=== PATIENT | male | born 1990 | race African-American/Black ===

== ENCOUNTER 2019-07-22 09:57 | Emergency (ER) | payer OTHER ==
[~2019-07-22] VITALS: Ht 180.3 cm; Wt 57.2 kg
--- NOTE | 2019-07-22 10:11 | NUR ---
ED Nurse Note: Patient walked in due to flu like symptoms. Pt c/o bodyaches. As per patient, he feelsnauseated and has been vomiting since yesterday. No episodes of vomiting at this time. No SOB. Breathing even and unlabored. VSS.
[2019-07-22 10:12] VITALS: BP 150/73
[2019-07-22] MEDS ORDERED: Acetaminophen 500mg (ES) tab ORAL ONE (11:15)
--- NOTE | 2019-07-22 11:18 | Emergency Room Report ---
History of Present Illness General Chief Complaint: Flu Like Symptoms Source: Patient Present Illness HPI Disclaimer: Please note that this report is being documented using [employer] technology. This can lead to erroneous entry secondary to incorrect interpretation by the dictating instrument. HPI: 29-year-old otherwise healthy male presents for evaluation of multiple symptoms. He developed nasal congestion, sore throat headache and myalgias a proximal he 1 week ago. Symptoms have been controlled with [id number] nasal spray, decongestants, NyQuil and NSAIDs. 2 days ago he developed some abdominal cramping with intermittent episodes of nonbloody nonbilious vomiting and profusely watery diarrhea. He reports feeling weak and overall worn out/ unwell. Denies fevers, chills, cough. Believes he has the flu. Did not have a flu shot this year. No known sick contacts. PMH: Denies PSH: Denies Allergies: Sulfa medications Social Hx: Denies drug or alcohol abuse Allergies: Coded Allergies: SULFA (SULFONAMIDE ANTIBIOTICS) (Verified Allergy, Unknown, 07/22/19) Nursing Documentation-PMH Past Medical History: No Stated History Review of Systems All Other Systems: negative except mentioned in HPI Physical Exam Vital Signs Date Time Temp Pulse Resp B/P (MAP) Pulse Ox O2 Delivery O2 Flow Rate FiO2 07/22/19 10:07 98.4 76 17 150/73 (98) 98 Room Air General: Awake and alert, no acute distress HEENT: NC/AT. EOMI. pharynx is erythematous but not edematous and no exudate Neck: Supple, trachea midline, mild lymphadenitis Cardiovascular: RRR. S1 and S2 normal. No murmur appreciated Resp: Normal work of breathing. No cough, wheezing or crackles appreciated Abdomen: Abdomen is soft, nondistended. Nontender Skin: Intact. No abrasions, laceration or rash over the exposed skin MSK: Normal tone and bulk. Moving all extremities. No obvious deformity. Neuro: Awake and alert. Mentating appropriately. Medical Decision Making Diagnostic Impression: Primary Impression: Viral syndrome ER Course 29-year-old male presents for evaluation of a viral-like syndrome beginning with a URI now presenting with gastroenteritis as well. Symptoms have been ongoing for approximately 1 week. He is outside of treatment window for influenza and therefore does not require testing. He arrives with stable vital signs and overall in no acute distress. Do not believe he requires emergent labs or imaging at this time. Will give Zofran to treat his nausea and vomiting and try to hydrate orally in the emergency department. He can follow- up as an outpatient with his PMD or return to the emergency department new or worsening symptoms. Last Vital Signs Date Time Temp Pulse Resp B/P (MAP) Pulse Ox O2 Delivery O2 Flow Rate FiO2 07/22/19 10:12 76 17 Room Air 07/22/19 10:12 98.4 150/73 98 Disposition: HOME, SELF-CARE Condition: Stable Scripts Acetaminophen* (ACETAMINOPHEN 325MG TABLET*) 325 Mg Tablet 650 MG ORAL Q6H PRN for For Pain, #20 TAB Prov: Rob Kingston MD 07/22/19 Ondansetron Odt* (ZOFRAN ODT*) 4 Mg Tab.rapdis 4 MG BC EVERY 6 HOURS PRN for Nausea & Vomiting, #20 TAB 0 Refills Prov: Rob Kingston MD 07/22/19 Referrals: NOT CHOSEN [facility]/,REFERRING (PCP) Rob Kingston MD Jul 22, 2019 11:18
--- NOTE | 2019-07-22 11:45 | NUR ---
ED Nurse Note: ERMD at bedside.
[2019-07-22] MEDS ORDERED: ONDANSETRON ODT4 MG BC (12:23)
[2019-07-22] MEDS ORDERED: ACETAMINOPHEN325 M1 ORAL (12:23)
[2019-07-22 12:27] VITALS: BP 150/73
--- NOTE | 2019-07-22 12:27 | NUR ---
ED Nurse Note: Pt cleared by ERMD for discharge. DC instructions was given and explained to pt and verbalized understanding of teachings. Prescription is electronically sent to pharmacy of choice. All medical deviecs such as ID band removed. Pt is AAO x4, ambulatory and left with all personal belongings.
== END 2019-07-22 12:27 | disposition home or self-care (01) ==
LOC: EMR 11:00
DX: B34.9 Viral infection, unspecified (principal); Z88.2 Allergy status to sulfonamides
CPT/HCPCS: 99282